=== PATIENT | female | born 1980 | race Caucasian/White ===

== ENCOUNTER 2019-05-29 12:34 | Emergency (ER) | payer BC, OTHER ==
[2019-05-29 13:26] VITALS: BP 106/69
[2019-05-29] MEDS ORDERED: Ibuprofen TAB* 600 MG PO ONE (13:28)
[2019-05-29 13:35] LABS: Influenza A Molecular POSITIVE (Negative)
--- NOTE | 2019-05-29 14:21 | UC ---
FLU HPI - HPI Summary HPI Summary: WOKE UP THIS MORNING WITH FEVER, CHILLS, BODY ACHES, COUGH AND FATIGUE. HAS BEEN CONGESTED FOR A FEW DAYS. NO FLU SHOT THIS SEASON. ALSO IS COMPLAINING OF RIGHT EAR PAIN. - History of Current Complaint Chief Complaint: UCGeneralIllness Stated Complaint: BODYACHES DIZZY NAUSEA COUGH Time Seen by Provider: 05/29/19 13:27 Hx Obtained From: Patient Hx Last Menstrual Period: 05/24/19 Onset/Duration: Gradual Onset, Lasting Hours, Still Present Severity Currently: Moderate Severity Initially: Moderate Pain Intensity: 9 Pain Scale Used: 0-10 Numeric Associated Signs & Symptoms: Positive: Fever, Myalgia, Cough, Nasal Congestion, Headache - Allergy/Home Medications Allergies/Adverse Reactions: Allergies Allergy/AdvReac Type Severity Reaction Status Date / Time No Known Allergies Allergy Verified 05/29/19 13:27 Home Medications: Home Medications traZODone TAB* [Desyrel TAB*] 06/17/15 [History] Amoxicillin PO (*) [Amoxicillin 500 MG CAP*] 1,000 mg PO Q12H #40 cap 05/29/19 [ Rx] Clindamycin 1% TOPICAL(NF) [Cleocin-T 1% TOPICAL(NF)] 1 applic DAILY 05/29/19 [ History Confirmed 05/29/19] DULoxetine DR CAP* [Cymbalta CAP*] 1 tab PO DAILY 05/29/19 [History Confirmed ] Oseltamivir CAP* [Tamiflu CAP*] 75 mg PO BID #10 cap 05/29/19 [Rx] Spironolactone 1 tab PO DAILY 05/29/19 [History Confirmed 05/29/19] Tretinoin [Retin-A] 15 gm TP 05/29/19 [History] PMH/Surg Hx/FS Hx/Imm Hx Previously Healthy: Yes - Surgical History Surgical History: Yes Surgery Procedure, Year, and Place: C-SECTIONS X2 - Family History Known Family History: Positive: None - Social History Alcohol Use: None Substance Use Type: None Smoking Status (MU): Former Smoker Review of Systems All Other Systems Reviewed And Are Negative: Yes Constitutional: Positive: Fever, Chills, Fatigue ENT: Positive: Nasal Discharge Respiratory: Positive: Cough Cardiovascular: Positive: Negative Gastrointestinal: Positive: Negative Musculoskeletal: Positive: Myalgia Neurological/Mental Status: Positive: Headache Physical Exam Triage Information Reviewed: Yes Appearance: No Pain Distress, Well-Nourished, Ill-Appearing - FATIGUED Vital Signs: Initial Vital Signs Temp 101.9 F 05/29/19 13:23 Pulse 110 05/29/19 13:23 Resp 20 05/29/19 13:23 BP 106/69 05/29/19 13:23 Pulse Ox 98 05/29/19 13:23 Laboratory Tests 05/29/19 13:32 Influenza A (Rapid) Positive H Vital Signs Reviewed: Yes Eyes: Positive: Conjunctiva Clear ENT: Positive: Hearing grossly normal, Pharynx normal, Other - LEFT TM NORMAL. RIGHT TM DULL, ERYTHEMATOUS Neck: Positive: Supple, Nontender, No Lymphadenopathy Respiratory Exam: Normal Cardiovascular: Positive: Tachycardia Abdomen Description: Positive: Soft Musculoskeletal: Positive: No Edema Neurological: Positive: Alert, Muscle Tone Normal Psychological: Positive: Age Appropriate Behavior Skin: Negative: Rashes Flu Course/Dx - Course Course Of Treatment: SWAB POSITIVE FOR INFLUENZA A. FLULIKE SYMPTOMS REALLY BEGAN THIS MORNING. TAMIFLU TWICE DAILY FOR 5 DAYS. RIGHT-SIDED EAR INFECTION ON EXAM WELL. WILL COVER WITH AMOXICILLIN TWICE DAILY FOR 10 DAYS. REST, HYDRATE, OTC MEDS NEEDED FOR FEVER AND DISCOMFORT. NOTE FOR WORK PROVIDED. FOLLOW-UP PCP IF NOT IMPROVING EXPECTED WITH THIS TREATMENT. - Differential Dx/Diagnosis Provider Diagnosis: Influenza A, Right otitis media Discharge ED - Sign-Out/Discharge Documenting (check all that apply): Patient Departure All imaging exams completed and their final reports reviewed: No Studies - Discharge Plan Condition: Stable Disposition: HOME Prescriptions: Amoxicillin PO (*) [Amoxicillin 500 MG CAP*] 1,000 mg PO Q12H #40 cap Oseltamivir CAP* [Tamiflu CAP*] 75 mg PO BID #10 cap Patient Education Materials: Influenza (ED), Ear Infection (ED) Forms: *Work Release Referrals: [facility] [Provider Group] - If Needed Additional Instructions: SWAB POSITIVE FOR INFLUENZA A. TAMIFLU TWICE DAILY FOR 5 DAYS. OTC MEDS NEEDED FOR FEVER, BODY ACHES. STAY WELL HYDRATED AND RESTED. RIGHT-SIDED EAR INFECTION ON EXAM TODAY. AMOXICILLIN TWICE DAILY FOR 10 DAYS. IBUPROFEN NEEDED FOR DISCOMFORT. SEEK FOLLOW-UP IF YOU ARE NOT IMPROVING EXPECTED WITH THIS TREATMENT. - Billing Disposition and Condition Condition: STABLE Disposition: Home
== END 2019-05-29 14:27 | disposition home or self-care (01) ==
LOC: UCEAST 12:34
DX: J10.1 Influenza due to other identified influenza virus with other respiratory manifestations (principal); H66.91 Otitis media, unspecified, right ear; Z87.891 Personal history of nicotine dependence
CPT/HCPCS: 99202; A9270-GY; G0463